=== PATIENT | female | born 1980 | race Caucasian/White ===

== ENCOUNTER → 2019-12-26 | Outpatient (CLI) | payer MEDICAID, SELFPAY | END | disposition home or self-care (01) | PROVIDERS: Visit Provider Family Medicine | DX: Z03.818 Encounter for observation for suspected exposure to other biological agents ruled out (principal) | CPT/HCPCS: 87635; U0003 ==

== ENCOUNTER → 2020-01-16 | Outpatient (CLI) | payer MEDICAID, SELFPAY | END | disposition home or self-care (01) | LOC: LABSPEC 01-17 09:19 | PROVIDERS: PCP Family Medicine; Visit Provider Family Medicine | DX: Z03.818 Encounter for observation for suspected exposure to other biological agents ruled out (principal) | CPT/HCPCS: 87635; U0003 ==

== ENCOUNTER → 2020-01-30 | Outpatient (CLI) | payer MEDICAID, SELFPAY | END | disposition home or self-care (01) | LOC: LABSPEC 11:12 | PROVIDERS: Referring Provider Family Medicine; Visit Provider Family Medicine | DX: Z11.59 Encounter for screening for other viral diseases (principal) | CPT/HCPCS: 87635; U0003 ==

== ENCOUNTER 2021-11-11 11:47 | Day surgery (SDC) | payer OTHER, MEDICAID, SELFPAY ==
[2021-11-11 12:06] VITALS: BP 112/82; PULSE 75; RESP 16; TEMP 37.3; O2SAT 100; BMI 32.1
[2021-11-11] MEDS: Lactated Ringers 1,000 ML 15 ML IV (12:13)
[2021-11-11] MEDS: Lubricating Jelly 60 GM Tube 30 GM (12:39)
--- NOTE | 2021-11-11 12:42 | DCINST_ITS ---
Discharge Instructions Diet Discharge Diet: No restrictions Activity Discharge Activity: Return to Normal Activity and [address] (When not taking narcotics) Dressing / Incision Call your doctor if you observe: Fever of 101 or Higher, Inability to urinate and Inability to have a bowel movement Follow Up Care Please Follow Up With: Zenaida Wray MD When: Call office for appointment for cystoscopy and stent removal Test Results: Test results from this visit will be discussed in further detail at your follow- up appointment, if applicable. Discharge Plan Admission Attending Provider: Zenaida Wray Primary Care Provider: Eileen Hallman NP Discharge Orders/Prescriptions Prescriptions: New ondansetron HCl [ondansetron HCl] 8 mg tablet 8 mg PO Q8H PRN PRN (Reason: Nausea) 7 Days Qty: 20 0RF phenazopyridine [Pyridium] 200 mg tablet 200 mg PO TID PRN PRN (Reason: Bladder Spasms) 7 Days Qty: 30 0RF Continued hydrocodone-acetaminophen 5-325 mg Tablet 1 tab PO Q6H PRN (Reason: Pain) ciprofloxacin HCl [Cipro] 500 mg Tablet 500 mg PO Q12H albuterol sulfate 90 mcg/actuation Hfa Aerosol Inhaler 1 inh INHALATION Q6H PRN (Reason: SOB) Discontinued tamsulosin [Flomax] 0.4 mg Capsule 0.4 mg PO QHS Referrals / Follow Up: Eileen Hallman NP, SERVICE DESK ANALYST-C [Primary Care Provider] - Disposition Disposition (needs filled in before D/C Order can be placed): Home, Self Care
--- NOTE | 2021-11-11 12:45 | OP.PCM_ITS ---
Problems Associated Problem List Diagnoses (1) Right ureteral calculus: Report of Operation Date of Procedure: 11/11/21 Pre-Operative Diagnosis: Distal right ureteral calculus Post-Operative Diagnosis: Same Surgery/Procedure Performed:: Cystoscopy, right ureteroscopy, holmium laser lithotripsy, stone basket extraction, right right ureteral stent insertion Surgeon: Zenaida Wray Type of Anesthesia: General Specimen's removed: Right ureteral stone Description of Procedure: The patient is a 41-year-old female who was seen in the emergency room 2 days ago with uncontrolled right flank pain and was found to have a distal 6 mm right ureteral calculus with hydronephrosis. She now presents for definitive surgical intervention. Informed consent was obtained. The patient was taken to the operating room and placed on the operating room table. Anesthesia monitored the head, neck, airway, IV access and vital signs throughout the case. Once anesthesia was apparently administered, the patient was placed into dorsolithotomy position was prepped and draped in usual sterile fashion. The cystoscope was inserted through the urethra under direct visualization into the urinary bladder. The bladder mucosa was erythematous without evidence of mass. The right ureteral orifice was identified and intubated with a 0.035 Glidewire which easily passed into the renal pelvis as seen on fluoroscopy. Using a semirigid ureteroscope, access to the distal ureter was achieved and the stone was easily visualized and a very large, larger than determined by CT scan. The stone was broken into small pieces and removed with a basket. At the end of this procedure the ureteroscope was passed proximal to the area of the stone and no further stone was seen. Using the 0.035 Glidewire, a 6 Turkmen 24 cm JJ stent was placed with good curling in the renal pelvis as well as the urinary bladder. The patient's bladder was then emptied and the stones were submitted for analysis. The patient was then awakened and taken to the recovery room in good condition. There were no complications during this procedure. Grafts/Implants Used: 6 x 24 JJ stent Complications None Admit VTE Documentation VTE Present on Admission: Yes VTE Mechan Device Prophylaxis: SCD's VTE Pharm Prophylaxis ordered?: No Reason prophylaxis not ordered:: Treatment Not Indicated
--- NOTE | 2021-11-11 13:10 | CALC_PTH ---
PATIENT: SINA LAI LOC: [facility] [place] U#:[id number] AGE/SX: 41/F ROOM: RE11/11/[address]: Dr. Zenaida Wray MD : 1980 BED: DIS: 11/11/2021 SPEC #: [id number] RECD: 11/11/21 14:28 STATUS: MARGARET ANDERSON #: [id number] [place]: 11/11/21 13:[address]: Zenaida Wray DEPT: SURGICAL PATHOLOGY RECD BY: Bud Alejandro ENTERED: 11/12/21 08:08 SP TYPE: Calculi OTHR DR: OFT Queen Tissues: CALCULI Procedures: Surgery Specimen Level I HEADER OPERATION: Cysto, ureteroscopy, retro, laser, stent PRE-OP DIAGNOSIS: Kidney stone, UTI TISSUE SUBMITTED: Ureteral calculi GROSS DIAGNOSIS Ureteral calculus, removal: Fragments of unremarkable calculi (gross diagnosis only). AM:chritsy 11/15/2021 COMMENT The calculus is submitted in its entirety for chemical stone analysis. The results from this study will be reported separately. GROSS DESCRIPTION Received without fixative labeled with the patient's name and designated ureteral calculi. The specimen consists of multiple fragments of brownish-black stone measuring in aggregate 0.5 x 0.5 x 0.2 cm. The entire specimen is submitted for stone analysis. / SJ:christy 11/12/2021 CPT: 72113
[2021-11-11 13:55] VITALS: BP 112/82; BP 129/101; PULSE 97; RESP 18; TEMP 36.9; O2SAT 96
[2021-11-11 14:00] VITALS: BP 112/82; BP 120/83; PULSE 83; RESP 18; O2SAT 100
[2021-11-11 14:15] VITALS: BP 112/82; BP 128/102; PULSE 70; RESP 18; O2SAT 100
[2021-11-11 14:30] VITALS: BP 107/68; BP 112/82; PULSE 54; RESP 18; TEMP 37.3; O2SAT 100
[2021-11-11] MEDS: Ketorolac 30 MG/ML Syringe IV (14:45)
[2021-11-11 15:00] VITALS: BP 112/82; BP 117/71; PULSE 65; RESP 16; TEMP 37.4; O2SAT 98
[2021-11-18 12:20] LABS: Size 4x3 mm
== END 2021-11-11 15:13 | disposition home or self-care (01) ==
LOC: SDC 11:53 → AC 11:54
PROVIDERS: PCP Nurse Practitioner Family; Referring Provider Urology; Visit Provider Urology
PROC: 0TJ98ZZ Inspection of Ureter, Via Natural or Artificial Opening Endoscopic (ICD-10-PCS; CPT 52352; principal; 2021-11-11 13:00)
DX: N13.2 Hydronephrosis with renal and ureteral calculous obstruction (principal); N39.0 Urinary tract infection, site not specified; R39.14 Feeling of incomplete bladder emptying; J45.909 Unspecified asthma, uncomplicated; Z79.899 Other long term (current) drug therapy; Z87.442 Personal history of urinary calculi
CPT/HCPCS: 52356; 00918; 76000; 82360; 88300; J7120; C2617; J2405